=== PATIENT | female | born 1970 | race Two or more races ===

== ENCOUNTER 2018-09-23 09:31 | Emergency (ER) | payer OTHER ==
[~2018-09-23] VITALS: Ht 154.9 cm; Wt 68.9 kg
== END 2018-09-23 17:08 | disposition home or self-care (01) ==
LOC: ER 09:31
DX: H81.13 Benign paroxysmal vertigo, bilateral (principal)

== ENCOUNTER 2020-04-04 14:37 | Outpatient (CLI) | payer OTHER | END 2020-04-04 16:14 | disposition home or self-care (01) | LOC: MRI 14:37 | PROVIDERS: ATTEND Otolaryngology | DX: H90.A22 Sensorineural hearing loss, unilateral, left ear, with restricted hearing on the contralateral side (principal); H93.12 Tinnitus, left ear | CPT/HCPCS: 70553 ==

== ENCOUNTER 2025-03-09 07:39 | Emergency (ER) | payer OTHER ==
[~2025-03-09] VITALS: Ht 157.5 cm; Wt 72.6 kg
[2025-03-09] MEDS ORDERED: ONDANSETRON HCL 2 MG/ML VIAL ONE ×2 (08:28→08:33)
[2025-03-09] MEDS ORDERED: 0.9 % SODIUM CHLORIDE 500 ML IV SCH (08:30)
[2025-03-09] MEDS ORDERED: ONDANSETRON HCL 2 MG/ML VIAL IV ONE (08:30)
[2025-03-09 08:54] LABS: BASO % 0.4 % (0.1-1.2); EOS # 0.07 (0.04-0.54); EOS % 0.8 % (0.7-7.0); LYMPH # 1.67 (1.18-3.74); LYMPH % 20.2 % (19.3-53.1); MEAN PLATELET VOLUME 10.80 fl (9.4-12.4); MONO # 0.38 (0.24-0.82); MONO % 4.6 % (4.7-12.5); NEUT # 6.10 (1.56-6.13); NEUT % 73.9 % (34.0-71.1); RED CELL DISTRIBUTION WIDTH 13.0 % (11.6-14.4)
[2025-03-09 09:29] LABS: ALT/SGPT 27.0 U/L (12-78); AST/SGOT 12.0 U/L (15-37); BILIRUBIN TOTAL 0.26 mg/dL (0.3-1.2); BUN CREA RATIO 19.0 (7.0-25.0); CREATININE SERUM 0.62 mg/dL (0.55-1.02); GFR 100.31; GLOBULINA 4.3 G/DL (2.4-3.5); GLUCOSE FASTING 109.0 mg/dL (65-100); OSMOLALITY SERUM 282.0 MOSM/KG (275-295)
[2025-03-09 10:27] LABS: URINE APPEARANCE Clear; URINE BILIRRUBIN Negative (NEGATIVE); URINE BLOOD Negative; URINE COLOR Yellow; URINE GLUCOSE Negative (NEGATIVE); URINE KETONE Negative (NEGATIVE); URINE LEUKOCYTE Trace; URINE NITRATE Negative; URINE PROTEIN Negative (NEGATIVE); URINE UROBILINOGEN 0.2 E.U./dl
[2025-03-09 10:33] LABS: URINE BACTERIA 3806.4 uL (0.0-1933); URINE EPITHELIAL CELLS 37.0 uL (0.0-38.8); URINE RBC 10.5 uL (0.0-20.8); URINE WBC 24.3 uL (0.0-23.2)
[2025-03-09 10:59] LABS: URINE CAST 0.14 uL (0.0-1.40)
== END 2025-03-09 12:56 | disposition home or self-care (01) ==
LOC: ER 07:39
PROVIDERS: Emergency Medicine
DX: R42 Dizziness and giddiness (principal); Z88.6 Allergy status to analgesic agent